=== PATIENT | male | born 1995 | race Caucasian/White ===

== ENCOUNTER 2019-07-15 12:13 | Emergency (ER) | payer MEDICAID, OTHER ==
[2019-07-15] MEDS ORDERED: traMADol 50 MG TABLET PO STA (12:38)
[2019-07-15] MEDS ORDERED: ACETAMINOPHEN 325 MG TABLET PO STA (12:38)
[2019-07-15] MEDS ORDERED: IBUPROFEN 600 MG TABLET PO STA (12:38)
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
[2019-07-15 13:42] VITALS: BP 124/71
== END 2019-07-15 13:42 | disposition home or self-care (01) ==
LOC: ED 12:13
DX: S62.346A Nondisplaced fracture of base of fifth metacarpal bone, right hand, initial encounter for closed fracture (principal); W22.03XA Walked into furniture, initial encounter; Y92.009 Unspecified place in unspecified non-institutional (private) residence as the place of occurrence of the external cause; F17.200 Nicotine dependence, unspecified, uncomplicated
CPT/HCPCS: 73130; 99283; A9270

== ENCOUNTER 2020-03-23 13:35 | Outpatient (CLI) | payer MEDICAID | END 2020-03-23 13:36 | disposition critical access hospital (66) | LOC: EMS 13:35 | PROVIDERS: ATTEND Surgery | DX: R41.82 Altered mental status, unspecified (principal); R06.9 Unspecified abnormalities of breathing | CPT/HCPCS: A0425; A0427; A0999 ==

== ENCOUNTER 2020-03-23 13:55 | Emergency (ER) | payer MEDICAID ==
--- NOTE | 2020-03-23 14:19 | ED Physician Documentation ---
History of Present Illness - Stated complaint Stated Complaint: UNRESPONSIVE - Chief complaint Chief Complaint: General - History obtained from History obtained from: Patient - Additonal information Additional information: 24-year-old male arrives via EMS for chief complaint of "unconsciousness". EMS explains that they were called by the patient's mother stating that the patient was unconscious and not breathing. EMS advised that she start CPR. Patient's mother did start CPR chest compressions. When EMS arrived the patient was awake alert and oriented breathing on his own. EMS administered Narcan 1.25 mg x 1 in route. 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 He took a half a tablet of the Oxy at roughly noon to help with tooth pain and it made him fall asleep. Patient states that he was not trying to harm himself, or to get high. He denies any chest pain, shortness of breath, dizziness, headache.He admits to smoking roughly a gram of marijuana daily. Review of Systems Ten Systems: 10 systems reviewed and negative Constitutional: reports: Reviewed and negative Eyes: reports: Reviewed and negative Ears: reports: Reviewed and negative Nose: reports: Reviewed and negative Throat: reports: Reviewed and negative Cardiac: reports: Reviewed and negative. denies: Chest pain / pressure, Palpitations, Pedal edema Respiratory: reports: Reviewed and negative GI: reports: Reviewed and negative : reports: Reviewed and negative Skin: reports: Reviewed and negative Musculoskeletal: reports: Reviewed and negative Psychiatric: reports: Reviewed and negative PD PAST MEDICAL HISTORY - Past Medical History Past Medical History: No - Past Surgical History Past Surgical History: Yes HEENT: Myringotomy (tubes) - Present Medications Home Medications: Ambulatory Orders Medication Instructions Recorded Confirmed Hydrocodone/Acetaminophen [[place] 1 each PO Q6H PRN #12 tablet 07/15/19 5-325 Tablet] Naproxen 500 mg PO BID #20 tablet 07/15/19 - Allergies Allergies/Adverse Reactions: Allergies Allergy/AdvReac Type Severity Reaction Status Date / Time erythromycin ethylsuccinate * Allergy Hives Verified 03/23/20 14:05 [From Pediazole] sulfisoxazole acetyl * Allergy Hives Verified 03/23/20 14:05 [From Pediazole] - Social History Does the pt smoke?: Yes Smoking Status: Current some day smoker Does the pt drink ETOH?: No Does the pt have substance abuse?: Yes Substance Use and Type: Marijuana - Immunizations Immunizations are current?: No - POLST Patient has POLST: No PD ED PE NORMAL - General General: Alert and oriented X 3, No acute distress - HEENT HEENT: Atraumatic, PERRL, EOMI, Ears normal, Moist mucous membranes, Pharynx benign. No: Dentition benign (poor dentation, several upper teeth absent) - Neck Neck: Supple, no meningeal sign, No adenopathy - Cardiac Cardiac: RRR, No murmur, No gallop - Respiratory Respiratory: No respiratory distress, Clear bilaterally - Abdomen Abdomen: Normal bowel sounds, Soft, Non tender, Non distended - Back Back: No CVA TTP - Derm Derm: Normal color, Warm and dry, No rash - Extremities Extremities: No deformity, No tenderness to palpate, Normal ROM s pain, No edema - Neuro Neuro: Alert and oriented X 3, medication aid 2-12 intact Eye Opening: Spontaneous Motor: Obeys Commands Verbal: Oriented GCS Score: 15 - Psych Psych: Normal mood, Normal affect Results - Vitals Vitals: Vital Signs - 24 hr 03/23/20 03/23/20 03/23/20 13:57 14:35 15:52 Temperature 36.7 C Heart Rate 98 101 H 72 Respiratory 22 17 17 Rate Blood Pressure 128/84 H 128/84 H 106/53 L O2 Saturation 99 99 100 Oxygen O2 Source Room air - EKG (time done) No standard instances Rate: Rate (enter#) (99) Rhythm: NSR [place]: Normal Intervals: Normal AR QRS: Normal Ischemia: Normal ST segments Computer interpretation: Agree with computer - Labs Labs: Laboratory Tests 03/23/20 03/23/20 03/23/20 14:35 14:35 16:30 WBC 15.9 H RBC 4.32 L Hgb 13.9 L Hct 41.3 L MCV 95.6 H MCH 32.2 H MCHC 33.7 RDW 12.8 Plt Count 228 MPV 10.3 Neut # (Auto) 13.3 H Lymph # (Auto) 1.3 L [place] # (Auto) 0.8 Eos # (Auto) 0.4 Baso # (Auto) 0.1 Absolute Nucleated RBC 0.00 Nucleated RBC % 0.0 Sodium 139 Potassium 4.4 Chloride 104 Carbon Dioxide 31 Anion Gap 4.0 L BUN 10 Creatinine 1.1 Estimated GFR (MDRD) 82 L Glucose 99 Calcium 9.5 Total Bilirubin 0.5 AST 38 ALT 40 Alkaline Phosphatase 47 Total Protein 8.3 H Albumin 4.8 Globulin 3.5 Albumin/Globulin Ratio 1.4 Lipase 35 Urine Color YELLOW Urine Clarity CLEAR Urine pH 7.0 Ur Specific [place] 1.020 Urine Protein NEGATIVE Urine Glucose (UA) NEGATIVE Urine Ketones NEGATIVE Urine Occult Blood NEGATIVE Urine Nitrite NEGATIVE Urine Bilirubin NEGATIVE Urine Urobilinogen 0.2 (NORMAL) Ur Leukocyte Esterase NEGATIVE Ur Microscopic Review NOT INDICATED Urine Culture Comments NOT INDICATED Urine Opiates Screen NEGATIVE Ur Oxycodone Screen POSITIVE H Urine Methadone Screen NEGATIVE Ur Propoxyphene Screen NEGATIVE Ur Barbiturates Screen NEGATIVE Ur Tricyclics Screen NEGATIVE Ur Phencyclidine Scrn NEGATIVE Ur Amphetamine Screen NEGATIVE U Methamphetamines Scrn NEGATIVE U Benzodiazepines Scrn POSITIVE H Urine Cocaine Screen NEGATIVE U Cannabinoids Screen POSITIVE H - Rads (name of study) No standard instances Radiology: Final report received (normal AP upright portable chest) PD MEDICAL DECISION MAKING - ED course Complexity details: reviewed results, re-evaluated patient, d/w patient, other ED course: While in the emergency room today the patient remained alert, awake, oriented, with no complaints of feeling tired and sleepy. Patient has had no respiratory or cardiac symptoms or changes .While in the ER today. Discussed with the patient's the importance of not taking his mother's medications, oxycodone, benzodiazepines. Advised patient not to smoke pot, drink alcohol or other drugs at the same time as this increases his chances of having respiratory depression & stopping breathing while asleep. I did encourage the pt to reduce and /or stop smoking marijuana. Departure - Departure Disposition: 01 Home, Self Care Clinical Impression: Unresponsiveness, Cannabis abuse Condition: Good Instructions: ED Narcotic Abuse Comments: I encourage you to reduce the amount of marijuana you consume daily. Do not take other peoples/persons subscription medications for your own symptoms/ pain/purposes. This is both dangerous and illegal. As I discussed with you, do not consume marijuana with any other substances (alcohol, pain medication, lorazepam) as the combination of multiple medications increase your risk of having respiratory compromise or complete failure (stopping breathing). Follow up with your PCP in one week if you continue to have problems sleeping and discuss options with them.
[2020-03-23 14:41] LABS: BASOPHILS # (AUTO) 0.1 10^3/uL (0.0-0.1); BASOPHILS % (AUTO) 0.4 %; EOSINOPHILS # (AUTO) 0.4 10^3/uL (0.0-0.7); EOSINOPHILS % (AUTO) 2.3 %; HGB - HEMOGLOBIN 13.9 g/dL (14.0-18.0); LYMPHOCYTES # (AUTO) 1.3 10^3/uL (1.5-3.5); MEAN CORPUSCULAR HEMOGLOBIN 32.2 pg (27.0-31.0); MEAN CORPUSCULAR HGB CONC 33.7 g/dL (32.0-36.0); MEAN CORPUSCULAR VOLUME 95.6 fL (80.0-94.0); MEAN PLATELET VOLUME 10.3 fL (7.4-11.4); MONOCYTES # (AUTO) 0.8 10^3/uL (0.0-1.0); MONOCYTES % (AUTO) 4.8 %; NEUTROPHILS # (AUTO) 13.3 10^3/uL (1.5-6.6); NEUTROPHILS % (AUTO) 83.9 %; PLT - PLATELET COUNT 228 10^3/uL (130-450); RED BLOOD COUNT 4.32 10^6/uL (4.70-6.10); RED CELL DISTRIBUTION WIDTH 12.8 % (12.0-15.0); WHITE BLOOD COUNT 15.9 x10^3/uL (4.8-10.8)
[2020-03-23 14:56] LABS: ALBUMIN 4.8 g/dL (3.2-5.5); ALBUMIN/GLOBULIN RATIO 1.4 (1.0-2.2); BILIRUBIN,TOTAL 0.5 mg/dL (0.2-1.0); CALCIUM 9.5 mg/dL (8.5-10.3); CREATININE 1.1 mg/dL (0.6-1.2); TOTAL PROTEIN 8.3 g/dL (6.7-8.2)
--- NOTE | 2020-03-23 14:56 | XRAY Report ---
Reason: chest pain Procedure Date: 03/23/2020 Accession Number: [id number] / [id number] Procedure: XR - Chest 1 View X-Ray CPT Code: 92851 Final Report FULL RESULT: EXAM: CHEST RADIOGRAPHY 1 VIEW EXAM DATE: 03/23/2020. CLINICAL HISTORY: Chest pain. COMPARISON: PA and lateral chest on 08/11/2007. TECHNIQUE: AP upright portable chest at 1425. FINDINGS: Lungs/Pleura: Normal vasculature. The lungs are clear. No pleural fluid or pneumothorax. Mediastinum: Normal cardiac and mediastinal contours. Bones: Normal. IMPRESSION: Normal AP upright portable chest. RADIA
[2020-03-23 16:39] LABS: MUDS CUTOFF CONCENTRATIONS CUTOFF CONC BELOW:
[2020-03-23 16:42] LABS: BILIRUBIN,URINE NEGATIVE (NEGATIVE); CLARITY,URINE CLEAR (CLEAR); GLUCOSE, URINE (UA) NEGATIVE (NEGATIVE); KETONES,URINE (UA) NEGATIVE (NEGATIVE); LEUKOCYTE ESTERASE, URINE NEGATIVE (NEGATIVE); NITRITE,URINE NEGATIVE (NEGATIVE); OCCULT BLOOD,URINE NEGATIVE (NEGATIVE); PROTEIN,URINE NEGATIVE (NEGATIVE); UROBILINOGEN,URINE 0.2 (NORMAL) E.U./dL (NORMAL)
[2020-03-23 16:51] LABS: AMPHETAMINE SCREEN,URINE NEGATIVE (NEGATIVE); BENZODIAZEPINES SCREEN, URINE POSITIVE (NEGATIVE); COCAINE SCREEN URINE NEGATIVE (NEGATIVE); METHADONE SCREEN, URINE NEGATIVE (NEGATIVE); METHAMPHETAMINES SCREEN, URINE NEGATIVE (NEGATIVE); OPIATE SCREEN, URINE NEGATIVE (NEGATIVE); OXYCODONE SCREEN, URINE POSITIVE (NEGATIVE); PROPOXYPHENE SCREEN, URINE NEGATIVE (NEGATIVE); TRICYCLIC ANTIDEPRESSANT,URINE NEGATIVE (NEGATIVE)
[2020-03-23 17:18] VITALS: BP 118/80
== END 2020-03-23 17:27 | disposition home or self-care (01) ==
LOC: EDUNIT# → ED 13:55
DX: R40.20 Unspecified coma (principal); F12.10 Cannabis abuse, uncomplicated; F17.200 Nicotine dependence, unspecified, uncomplicated
CPT/HCPCS: 36415; 71045; 80053; 80306; 81001; 81003; 83690; 85025; 87086; 93005; 99284

== ENCOUNTER 2020-08-30 08:00 | Outpatient (CLI) | payer MEDICAID ==
[2020-08-30 18:31] LABS: BASOPHILS % (AUTO) 0.5 %; EOSINOPHILS # (AUTO) 0.5 10^3/uL (0.0-0.7); EOSINOPHILS % (AUTO) 6.6 %; HGB - HEMOGLOBIN 14.8 g/dL (14.0-18.0); LYMPHOCYTES # (AUTO) 2.4 10^3/uL (1.5-3.5); LYMPHOCYTES % (AUTO) 32.7 %; MEAN CORPUSCULAR HEMOGLOBIN 31.4 pg (27.0-31.0); MEAN CORPUSCULAR VOLUME 92.4 fL (80.0-94.0); MEAN PLATELET VOLUME 10.6 fL (7.4-11.4); MONOCYTES # (AUTO) 0.6 10^3/uL (0.0-1.0); MONOCYTES % (AUTO) 8.2 %; NEUTROPHILS # (AUTO) 3.8 10^3/uL (1.5-6.6); NEUTROPHILS % (AUTO) 51.7 %; PLT - PLATELET COUNT 281 10^3/uL (130-450); RED BLOOD COUNT 4.71 10^6/uL (4.70-6.10); RED CELL DISTRIBUTION WIDTH 12.6 % (12.0-15.0); WHITE BLOOD COUNT 7.3 x10^3/uL (4.8-10.8)
[2020-08-30 19:24] LABS: ALBUMIN 4.9 g/dL (3.2-5.5); ALBUMIN/GLOBULIN RATIO 1.4 (1.0-2.2); BILIRUBIN,TOTAL 0.6 mg/dL (0.2-1.0); CALCIUM 9.8 mg/dL (8.5-10.3); CREATININE 1.1 mg/dL (0.6-1.2); TOTAL PROTEIN 8.4 g/dL (6.7-8.2)
[2020-08-31 14:21] LABS: HEPATITIS C ANTIBODY NON-REACTIVE (NON-REACTIVE)
[2020-08-31 15:36] LABS: HIV AG/AB 4TH GEN NON-REACTIVE (NON-REACTIVE)
== END 2020-08-30 23:59 | disposition home or self-care (01) ==
LOC: LAB.WCP 08:00
PROVIDERS: ATTEND Nurse Practitioner Family
DX: Z00.00 Encounter for general adult medical examination without abnormal findings (principal); F19.10 Other psychoactive substance abuse, uncomplicated
CPT/HCPCS: 36415; 80053; 84443; 85025; 86803; 87389

== ENCOUNTER 2023-11-04 20:00 | Outpatient (CLI) | payer MEDICAID | END 2023-11-04 23:59 | disposition critical access hospital (66) | LOC: EMS 20:00 | DX: R07.9 Chest pain, unspecified (principal); R06.02 Shortness of breath; F41.9 Anxiety disorder, unspecified; Z63.6 Dependent relative needing care at home | CPT/HCPCS: A0425; A0429; A0999 ==

== ENCOUNTER 2023-11-04 20:21 | Emergency (ER) | payer MEDICAID ==
[2023-11-04 20:41] LABS: GLUCOSE, URINE (UA) NEGATIVE (NEGATIVE); KETONES,URINE (UA) NEGATIVE (NEGATIVE); LEUKOCYTE ESTERASE, URINE NEGATIVE (NEGATIVE); NITRITE,URINE NEGATIVE (NEGATIVE); OCCULT BLOOD,URINE NEGATIVE (NEGATIVE); PROTEIN,URINE TRACE mg/dL (NEGATIVE); UROBILINOGEN,URINE 4 E.U./dL (NORMAL)
[2023-11-04 20:44] LABS: BILIRUBIN,URINE NEGATIVE (NEGATIVE); CLARITY,URINE HAZY (CLEAR); ICTOTEST,URINE NEGATIVE
[2023-11-04 20:51] LABS: AMPHETAMINE SCREEN,URINE POSITIVE (NEGATIVE); BARBITURATE SCREEN,UR NEGATIVE (NEGATIVE); BENZODIAZEPINES SCREEN, URINE NEGATIVE (NEGATIVE); BUPRENORPHINE SCREEN, URINE POSITIVE (NEGATIVE); COCAINE SCREEN URINE NEGATIVE (NEGATIVE); METHADONE SCREEN, URINE NEGATIVE (NEGATIVE); METHAMPHETAMINES SCREEN, URINE POSITIVE (NEGATIVE); OPIATE SCREEN, URINE NEGATIVE (NEGATIVE); OXYCODONE SCREEN, URINE NEGATIVE (NEGATIVE); THC CANNABINOID SCREEN, URINE POSITIVE (NEGATIVE); TRICYCLIC ANTIDEPRESSANT,URINE NEGATIVE (NEGATIVE)
[2023-11-04 21:02] LABS: BASOPHILS % (AUTO) 0.6 %; EOSINOPHILS # (AUTO) 0.2 10^3/uL (0.0-0.7); EOSINOPHILS % (AUTO) 3.6 %; HCT - HEMATOCRIT 35.3 % (42.0-52.0); HGB - HEMOGLOBIN 12.3 g/dL (14.0-18.0); LYMPHOCYTES % (AUTO) 31.8 %; MEAN CORPUSCULAR HEMOGLOBIN 31.1 pg (27.0-31.0); MEAN CORPUSCULAR HGB CONC 34.8 g/dL (32.0-36.0); MEAN CORPUSCULAR VOLUME 89.1 fL (80.0-94.0); MEAN PLATELET VOLUME 10.7 fL (7.4-11.4); MONOCYTES # (AUTO) 0.5 10^3/uL (0.0-1.0); MONOCYTES % (AUTO) 7.9 %; NEUTROPHILS # (AUTO) 3.6 10^3/uL (1.5-6.6); NEUTROPHILS % (AUTO) 55.9 %; PLT - PLATELET COUNT 213 10^3/uL (130-450); RED BLOOD COUNT 3.96 10^6/uL (4.70-6.10); RED CELL DISTRIBUTION WIDTH 12.3 % (12.0-15.0); WHITE BLOOD COUNT 6.4 x10^3/uL (4.8-10.8)
[2023-11-04 21:14] LABS: BACTERIA,URINE None Seen /HPF (None Seen); RBC,URINE 0-5 /HPF (0-5); SQUAMOUS EPITHELIAL CELL,UR NONE SEEN (<= Few); WBC,URINE 0-3 /HPF (0-3)
[2023-11-04 21:19] LABS: ACETAMINOPHEN 0.4 ug/mL; ALBUMIN 4.5 g/dL (3.2-5.5); ALKALINE PHOSPHATASE 50 IU/L (42-121); ALT ALANINE AMINOTRANSFERASE 12 IU/L (10-60); AST ASPARTATE AMINOTRANSFERASE 17 IU/L (10-42); BILIRUBIN,TOTAL 0.4 mg/dL (0.2-1.0); BUN - BLOOD UREA NITROGEN 11 mg/dL (6-20); CARBON DIOXIDE - CO2 28 mmol/L (21-32); CHLORIDE 104 mmol/L (101-111); ETOH - ETHANOL < 10.0 mg/dL; GFR - MDRD 88 (>89); GLUCOSE 93 mg/dL (74-104); LIPASE 37 U/L (11-82); SODIUM 138 mmol/L (135-145); TOTAL PROTEIN 6.8 g/dL (6.4-8.9)
[2023-11-04 21:26] LABS: SALICYLATE < 1.5 mg/dL
[2023-11-04 22:52] VITALS: O2SAT 100
--- NOTE | 2023-11-04 23:37 | XRAY Report ---
PROCEDURE: Chest 1 View X-Ray INDICATIONS: chest pain TECHNIQUE: One view of the chest was acquired. COMPARISON: None. FINDINGS: Surgical changes and devices: None. Lungs and pleura: No pleural effusions or pneumothorax. Lungs are clear. Mediastinum: Mediastinal contours appear normal. Heart size is normal. Bones and chest wall: No suspicious bony lesions. Overlying soft tissues appear unremarkable. IMPRESSION: No acute cardiopulmonary process. Reviewed by: Lashawn Dodd MD on 11/04/2023 11:36 PM [facility] Approved by: Lashawn Dodd MD on 11/04/2023 11:36 PM [facility] Station ID: [id number]
--- NOTE | 2023-11-05 05:18 | ED Physician Documentation ---
PD HPI MHE - Stated complaint Stated Complaint: CP/SOA, WANTS DETOX - Chief complaint Chief Complaint: Cardiac - History obtained from History obtained from: Patient - History of Present Illness Primary symptom: Anxiety Timing - onset: How many months ago (2) Contributing factors: Family, Substance abuse - drugs Similar symptoms before: Has not had sx before Recently seen: Not recently seen - Additional information Additional information: Miguel Gary is a 28-year-old male who has a history of narcotic and amphetamine use and he had a 4-year period of sobriety and has been using again for about 2 months. 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 She is a diabetic in her 50s who is completely reliant on him for her care. She requires assistance in and out of bed and with bathing and toileting. The patient indicates that she was living in a facility until about 6 months ago when he brought her home from that facility to [facility]. He thought he would be able to take care of her and he had did not realize how much care she t ook. He began to become more anxious and he began using again. He states he is using fentanyl and amphetamines. He has had prior overdoses. He has been in treatment previously. He wants to go back into treatment. He also wants help with caring for his mother. This evening he has developed acute chest pain with shortness of breath. He feels that he is having a panic attack. Review of Systems Constitutional: denies: Fever Eyes: denies: Decreased vision Ears: denies: Ear pain Nose: denies: Rhinorrhea / runny nose, Congestion Throat: denies: Sore throat Cardiac: reports: Chest pain / pressure. denies: Palpitations, Pedal edema, Calf pain Respiratory: denies: Dyspnea, Cough, Wheezing GI: denies: Abdominal Pain, Nausea, Vomiting, Constipation, Diarrhea : denies: Dysuria, Frequency Skin: denies: Rash Musculoskeletal: denies: Neck pain, Back pain, Extremity pain Neurologic: denies: Generalized weakness, Focal weakness, Numbness PD PAST MEDICAL HISTORY - Past Medical History Past Medical History: No Cardiovascular: None Respiratory: None Neuro: None Endocrine/Autoimmune: None GI: None : None HEENT: None Psych: None Musculoskeletal: None Derm: None - Past Surgical History Past Surgical History: Yes HEENT: Myringotomy (tubes) - Present Medications Home Medications: Ambulatory Orders Medication Instructions Recorded Confirmed Hydrocodone/Acetaminophen [[place] 1 each PO Q6H PRN #12 tablet 07/15/19 5-325 Tablet] Naproxen 500 mg PO BID #20 tablet 07/15/19 - Allergies Allergies/Adverse Reactions: Allergies Allergy/AdvReac Type Severity Reaction Status Date / Time erythromycin ethylsuccinate * Allergy Hives Verified 11/04/23 20:26 [From Pediazole] sulfisoxazole acetyl * Allergy Hives Verified 11/04/23 20:26 [From Pediazole] - Social History Does the pt smoke?: Yes Smoking Status: Current every day smoker Does the pt drink ETOH?: No Does the pt have substance abuse?: Yes Substance Use and Type: Other - Immunizations Immunizations are current?: No - POLST Patient has POLST: No PD ED PE NORMAL - General General: Alert and oriented X 3, No acute distress, Well developed/nourished - HEENT HEENT: Atraumatic, PERRL, EOMI - Neck Neck: Supple, no meningeal sign, No bony TTP - Cardiac Cardiac: RRR, No murmur - Respiratory Respiratory: No respiratory distress, Clear bilaterally, Other (chest wall tenderness to the superior portion of the sternum is present reproducing the symptoms the patient is complaining of. ) - Abdomen Abdomen: Soft, Non tender - Back Back: No CVA TTP, No spinal TTP - Derm Derm: Normal color, Warm and dry, No rash - Extremities Extremities: No deformity, No edema - Neuro Neuro: Alert and oriented X 3, logistics account manager 2-12 intact, No motor deficit, No sensory deficit, Normal speech Eye Opening: Spontaneous Motor: Obeys Commands Verbal: Oriented GCS Score: 15 - Psych Psych: Normal mood, Normal affect Results - Vitals Vitals: Vital Signs - 24 hr 11/04/23 11/04/23 11/04/23 20:26 20:29 21:33 Temperature 36.5 C 36.5 C 36.7 C Heart Rate 68 68 71 Respiratory 16 16 12 Rate Blood Pressure 148/77 H 145/77 H 110/63 O2 Saturation 100 100 98 11/04/23 22:44 Temperature Heart Rate 80 Respiratory 14 Rate Blood Pressure 100/65 O2 Saturation 100 Oxygen O2 Source Room air - EKG (time done) 2054 EKG releavant findings:: EKG personally interpreted by author of this note. Relevant findings are: Rate: Rate (enter#) (78) Intervals: Prolonged QT (borderline) Compare to prior EKG: Changed from prior EKG (03-23-2020 the rate has decreased and the QT interval has extended. ) Computer interpretation: Agree with computer - Labs Labs: Laboratory Tests 11/04/23 11/04/23 11/04/23 20:30 20:51 20:51 WBC 6.4 RBC 3.96 L Hgb 12.3 L Hct 35.3 L MCV 89.1 MCH 31.1 H MCHC 34.8 RDW 12.3 Plt Count 213 MPV 10.7 Neut # (Auto) 3.6 Lymph # (Auto) 2.0 [place] # (Auto) 0.5 Eos # (Auto) 0.2 Baso # (Auto) 0.0 Absolute Nucleated RBC 0.00 Nucleated RBC % 0.0 Sodium 138 Potassium 4.0 Chloride 104 Carbon Dioxide 28 Anion Gap 6.0 BUN 11 Creatinine 1.0 Estimated GFR (MDRD) 88 L Glucose 93 Calcium 10.0 Total Bilirubin 0.4 AST 17 ALT 12 Alkaline Phosphatase 50 Troponin I High Sens Total Protein 6.8 Albumin 4.5 Globulin 2.3 Albumin/Globulin Ratio 2.0 Lipase 37 Urine Color DARK YELLOW Urine Clarity [place] Urine pH 6.0 Ur Specific [place] 1.025 Urine Protein TRACE Urine Glucose (UA) NEGATIVE Urine Ketones NEGATIVE Urine Occult Blood NEGATIVE Urine Nitrite NEGATIVE Urine Bilirubin NEGATIVE Urine Urobilinogen 4 H Ur Leukocyte Esterase NEGATIVE Urine RBC 0-5 Urine WBC 0-3 Ur Squamous Epith Cells NONE SEEN Urine Bacteria None Seen Ur Microscopic Review INDICATED Urine Culture Comments NOT INDICATED Salicylates < 1.5 Urine Opiates Screen NEGATIVE Ur Buprenorphine Scrn POSITIVE H Ur Oxycodone Screen NEGATIVE Urine Methadone Screen NEGATIVE Acetaminophen 0.4 Ur Barbiturates Screen NEGATIVE Ur Tricyclics Screen NEGATIVE Ur Phencyclidine Scrn NEGATIVE Ur Amphetamine Screen POSITIVE H U Methamphetamines Scrn POSITIVE H U Benzodiazepines Scrn NEGATIVE Urine Cocaine Screen NEGATIVE U Cannabinoids Screen POSITIVE H Ur Drug Screen Comment CUTOFF CONC BELOW: Ethyl Alcohol < 10.0 11/04/23 20:51 WBC RBC Hgb Hct MCV MCH MCHC RDW Plt Count MPV Neut # (Auto) Lymph # (Auto) [place] # (Auto) Eos # (Auto) Baso # (Auto) Absolute Nucleated RBC Nucleated RBC % Sodium Potassium Chloride Carbon Dioxide Anion Gap BUN Creatinine Estimated GFR (MDRD) Glucose Calcium Total Bilirubin AST ALT Alkaline Phosphatase Troponin I High Sens 2.9 Total Protein Albumin Globulin Albumin/Globulin Ratio Lipase Urine Color Urine Clarity Urine pH Ur Specific [place] Urine Protein Urine Glucose (UA) Urine Ketones Urine Occult Blood Urine Nitrite Urine Bilirubin Urine Urobilinogen Ur Leukocyte Esterase Urine RBC Urine WBC Ur Squamous Epith Cells Urine Bacteria Ur Microscopic Review Urine Culture Comments Salicylates Urine Opiates Screen Ur Buprenorphine Scrn Ur Oxycodone Screen Urine Methadone Screen Acetaminophen Ur Barbiturates Screen Ur Tricyclics Screen Ur Phencyclidine Scrn Ur Amphetamine Screen U Methamphetamines Scrn U Benzodiazepines Scrn Urine Cocaine Screen U Cannabinoids Screen Ur Drug Screen Comment Ethyl Alcohol - Rads (name of study) chest Relevant Findings:: Prelim report reviewed (Impression: No acute cardiopulmonary process.), EMP independent interpretation of test, See rad report PD Medical Decision Making - ED course Complexity details: reviewed old records, reviewed results, re-evaluated patient, considered differential, d/w patient Reviewed Lab Results: We reviewed a complete blood count showing a normal white blood cell count and depressed hemoglobin and hematocrit at 12.3 and 35.3 with normal platelets these depressed values are not normal for the patient. He usually runs 41 chemistry showed normal electrolytes normal kidney and liver function and a high- sensitivity troponin was negative at 2.9 urinalysis is unremarkable and a talk screen shows positive for buprenorphine amphetamine methamphetamine and cannabis ethyl alcohol was less than 10 acetaminophen and salicylates negative. These screening laboratory tests are all normal or nearly normal and indicate the patient is well for psychiatric evaluation and for treatment of substance abuse. ED course: 28-year-old Miguel Gary presents to the emergency department this evening with chest pain that he felt was most likely a panic attack and I believe he is correct. We did do diligence including chest x-ray, electrocardiogram and troponin and these studies helped with eliminating coronary syndrome as a reason for his chest pain. He had pain to palpation that reproduced his symptoms. He felt the underlying reason for his anxiety relates to his substance abuse and his difficulty in caring for his disabled mother at home. He was offered consultation with social work for additional help and he readily excepted staying in the emergency department overnight for this consultation. He is seeking both treatment for himself and help with caring for his mother. Departure - Departure Clinical Impression: Stress reaction, Substance abuse Forms: PCP List
[2023-11-05] MEDS ORDERED: hydrOXYzine PAMOATE 25 MG CAPSULE PO STA (07:52)
[2023-11-05] MEDS ORDERED: diazePAM 5 MG TABLET PO STA (07:52)
[2023-11-05 08:38] LABS: CORONAVIRUS 229E-RESP PCR NOT DETECTED
[2023-11-05 08:39] LABS: B. PARAPERTUSSIS- RESP PCR PAN NOT DETECTED; B. PERTUSSIS- RESP PCR PANEL NOT DETECTED; C. PNEUMONIAE- RESP PCR PANEL NOT DETECTED; CORONAVIRUS HKU1-RESP PCR NOT DETECTED; CORONAVIRUS NL63-RESP PCR NOT DETECTED; CORONAVIRUS OC43-RESP PCR NOT DETECTED; HUMAN METAPNEUMOVIRUS NOT DETECTED; INFLUENZA A- RESP PCR PANEL NOT DETECTED; INFLUENZA B - RESP PCR PANEL NOT DETECTED; M. PNEUMONIAE- RESP PCR PANEL NOT DETECTED; PARAINFLUENZA VIRUS 1 NOT DETECTED; PARAINFLUENZA VIRUS 2 NOT DETECTED; PARAINFLUENZA VIRUS 3 NOT DETECTED; PARAINFLUENZA VIRUS 4 NOT DETECTED; RHINOVIRUS/ENTEROVIRUS NOT DETECTED; RSV- RESP PCR PANEL NOT DETECTED; SARS-CoV-2 -RESP PCR PANEL NOT DETECTED
[2023-11-05] MEDS ORDERED: LORazepam 1 MG TABLET PO STA (12:24)
[2023-11-05 13:12] VITALS: BP 125/74
--- NOTE | 2023-11-05 13:20 | ED Physician Documentation ---
ED Addendum - Addendum Addendum: 11/05/23 13:17 The patient was doing well after change of shift. He did rest for a while. He started feeling a bit anxious in general and feels he may be early withdrawal or related to the recent meth use. He is concerned however with the fentanyl opioid use that he does not want to start withdrawal medicine such as Suboxone too early as he has had precipitated withdrawal that was not comfortable. I did discuss with him that the precipitated withdrawal with buprenorphine too early actually can be treated by just more buprenorphine to overcome the receptors. He would still like to wait a little bit. Meanwhile we can treat some of his anxiety and early withdrawal with benzodiazepines and hydroxyzine instead. He was given nose and seemed to have improvement in symptoms for now. As he has bit more withdrawal type symptoms we can help with both benzodiazepines and buprenorphine. Meanwhile he was looking at possible detox programs. He was calling and talking with the [facility] in [place]. Limitation is that he has a primary urgent care physician assistant for his mother with whom he lives and she requires fairly close assistance. Our social work is talking with the patient and looking to see if they can help with a respite care for his mother so that he would have an opportunity for inpatient acute detox. If that does not work, I certainly can provide prescriptions for him to take in the short-term over the next week or so until he can get into follow-up and also other arrangements made for help with his mother. There is a the patient's sister is around in the area that can help in the short-term as well.
--- NOTE | 2023-11-05 16:19 | ED Physician Documentation ---
ED Addendum - Addendum Addendum: 11/05/23 16:17 The patient was interviewed by the detox center in [place]. The do have a bed available and accepted him. He is getting a ride from his sister to go there. Social work talked with him and the concern about his mother. His sister apparently will be taking care of her of her otherwise the patient had been main caregiver. Our social work was attempting to find the patient could get to a rehab or respite for the time the patient is in detox. They are still working on that in the background along with sister. This seems independent of the patient going to detox as he states that is what he wants to do regardless. Social work did follow in a file an APS to allow better follow-up on this. Disposition: The patient discharged in stable condition to home. Discharge diagnoses: 1. Polysubstance abuse 2. Opioid use disorder 3. Anxiety
== END 2023-11-05 16:30 | disposition home or self-care (01) ==
LOC: EDUNIT# → ED 20:21
DX: F43.9 Reaction to severe stress, unspecified (principal); F19.10 Other psychoactive substance abuse, uncomplicated; F11.90 Opioid use, unspecified, uncomplicated; F41.9 Anxiety disorder, unspecified; F17.200 Nicotine dependence, unspecified, uncomplicated; Z11.52 Encounter for screening for COVID-19
CPT/HCPCS: 36415; 71045; 80053; 80306; 80307; 80320; 80329; 81001; 83690; 84484; 85025; 87633; 93005; 99284; A9270; J8499; 81003; 87086